=== PATIENT | female | born 1990 | race Caucasian/White ===

== ENCOUNTER 2017-06-05 13:19 | Emergency (ER) | payer OTHER ==
[2017-06-05] MEDS: DIAZEPAM 2 MG TAB PO (16:28)
[2017-06-05] MEDS: IBUPROFEN 600 MG TAB PO (16:28)
== END 2017-06-05 18:25 | disposition home or self-care (01) ==
LOC: FTE 13:19
DX: M54.2 Cervicalgia (principal)
CPT/HCPCS: 70450; 72125; 99285-25